=== PATIENT | female | born 2000 ===

== ENCOUNTER 2025-02-25 12:12 | Outpatient (CLI) | payer BC, SELFPAY ==
[2025-02-25 21:47] LABS: Chlamydia DNA Amplified* NOT DETECTED (No Detected); GC DNA Amplified* NOT DETECTED (No Detected)
== END 2025-02-25 12:13 | disposition home or self-care (01) ==
PROVIDERS: Visit Provider Physician Assistant Medical
DX: Z00.00 Encounter for general adult medical examination without abnormal findings (principal); F41.8 Other specified anxiety disorders; Z13.6 Encounter for screening for cardiovascular disorders; Z11.3 Encounter for screening for infections with a predominantly sexual mode of transmission; Z12.4 Encounter for screening for malignant neoplasm of cervix
CPT/HCPCS: 80061; 84443; 87491; 87591; 87624; 87625; 88141; 88142